=== PATIENT | female | born 1985 | race Caucasian/White ===

== ENCOUNTER 2016-07-08 12:15 | Emergency (ER) | payer SELFPAY ==
--- NOTE | 2016-07-08 12:55 | ER Document Report ---
ED Medical Screen (RME) - General Stated Complaint: SORE THROAT Notes: 30 yo female c/o sore throat. children with + strep. c/o sore throat, cough. no fever Physical Exam - Vital signs Vitals: Temp Pulse Resp BP Pulse Ox 97.8 F 79 16 107/73 94 07/08/16 12:52 07/08/16 12:52 07/08/16 12:52 07/08/16 12:52 07/08/16 12:52 Course - Vital Signs Vital signs: Temp Pulse Resp BP Pulse Ox 97.8 F 79 16 107/73 94 07/08/16 12:52 07/08/16 12:52 07/08/16 12:52 07/08/16 12:52 07/08/16 12:52
--- NOTE | 2016-07-08 15:20 | ER Document Report ---
HPI - HPI Patient complains to provider of: cough, strep exposure Onset: Last week Quality of pain: No pain Pain Level: Denies Context: Patient presents to the emergency department with complaints of fever last week cough and recent exposure to strep. She reports both her kids recently treated for strep. She reports she has missed work and needs a work note. She denies recent fever vomiting diarrhea. She reports her throat really doesn't hurt but her kids had the same symptoms and when she took him to the urgent care they tested positive for strep. Associated Symptoms: Nonproductive cough, Fever Exacerbated by: Denies Relieved by: Denies Similar symptoms previously: No Recently seen / treated by doctor: No - REPRODUCTIVE LMP: [id number] - DERM Skin Color: Normal Past Medical History - General Information source: Patient - Social History Smoking Status: Current Every Day Smoker Cigarette use (# per day): Yes Chew tobacco use (# tins/day): No Frequency of alcohol use: None Drug Abuse: None Occupation: [employer] Lives with: Family Family History: Reviewed & Not Pertinent Patient has suicidal ideation: No Patient has homicidal ideation: No - Medical History Medical History: Negative Renal/ Medical History: Denies: Hx Peritoneal Dialysis Surgical Hx: Negative Vertical Provider Document - CONSTITUTIONAL Agree With Documented VS: Yes Exam Limitations: No Limitations General Appearance: WD/WN, No Apparent Distress - INFECTION CONTROL TRAVEL OUTSIDE OF THE [place] IN LAST 30 DAYS: No - HEENT HEENT: Atraumatic, Normal ENT Exam, Normocephalic. negative: Pharyngeal Exudate , Pharyngeal Erythema, Tympanic Membrane Red, Tympanic Membrane Bulging - NECK Neck: Normal Inspection, Supple. negative: Lymphadenopathy-Left, Lymphadenopathy-Right - RESPIRATORY Respiratory: Breath Sounds Normal, No Respiratory Distress O2 Sat by Pulse Oximetry: 94 - CARDIOVASCULAR Cardiovascular: Regular Rate, Regular Rhythm - GI/ABDOMEN Gastrointestinal: Abdomen Soft, Abdomen Non-Tender - BACK Back: Normal Inspection - MUSCULOSKELETAL/EXTREMETIES Musculoskeletal/Extremeties: SHERRIE CHIU - NEURO Level of Consciousness: Awake, Alert, Appropriate Motor/Sensory: No Motor Deficit - DERM Integumentary: Warm, Dry Course - Re-evaluation Re-evalutation: 07/08/16 Discussed symptoms with patient. Patient will be prescribed a prescription for Pen-Vee K. She was instructed if she started feeling worse to get the prescription filled otherwise follow-up with her primary care provider for reevaluation. She reports she's taken penicillin without problems before. - Vital Signs Vital signs: Temp Pulse Resp BP Pulse Ox 97.8 F 79 16 107/73 94 07/08/16 12:52 07/08/16 12:52 07/08/16 12:52 07/08/16 12:52 07/08/16 12:52 Discharge - Discharge Clinical Impression: Sore throat, Strep throat exposure Condition: Stable Disposition: HOME, SELF-CARE Instructions: Penicillin V K ([facility]), Strep Throat ([facility]), Sore Throat ([facility]) Additional Instructions: *You have been evaluated for a sore throat, strep exposure *Take medication as prescribed *Warm salt water gargles and throat lozenges for comfort *Change toothbrush after two days of antibiotics *Do not let anyone drink/eat after you *Good hand washing *Follow-up with a primary care provider within one week for recheck *Return to ED for worsening condition change, needs, trouble breathing, trouble swallowing Prescriptions: Penicillin V Potassium [Penicillin Vk 500 mg Tablet] 500 mg PO BID #20 tablet Forms: Return to Work
[2016-07-08 15:52] VITALS: BP 109/58
== END 2016-07-08 15:52 | disposition home or self-care (01) ==
LOC: ER 12:15
DX: J02.9 Acute pharyngitis, unspecified (principal); Z20.818 Contact with and (suspected) exposure to other bacterial communicable diseases; R05 Cough; F17.210 Nicotine dependence, cigarettes, uncomplicated
CPT/HCPCS: 99282

== ENCOUNTER 2017-10-11 15:29 | Emergency (ER) | payer MEDICAID ==
[2017-10-11 15:44] VITALS: BP 126/72
[2017-10-11] MEDS ORDERED: IBUPROFEN 600 MG TABLET PO ONE (17:13)
[2017-10-11] MEDS ORDERED: PENICILLIN V POTASSIUM 500 MG TABLET PO ONE (17:13)
[2017-10-11] MEDS ORDERED: LIDOCAINE 2% VISCOUS SOLN 20 ML UDCUP PO ONE (17:13)
--- NOTE | 2017-10-11 17:18 | ER Document Report ---
ED Oral Problem - General Chief Complaint: Toothache Stated Complaint: JAW PAIN Time Seen by Provider: 10/11/17 16:41 Mode of Arrival: Ambulatory Information source: Patient Notes: 32-year-old female presented ED for complaint of swelling to the left jaw last night that is no longer swelling with dental pain. She states the pain is a 5 out of 5 sharp and throbbing. She states she has had dental pain for a long time but is not been able to follow-up with the dentist. TRAVEL OUTSIDE OF THE U.S. IN LAST 30 DAYS: No - HPI Patient complains to provider of: Jaw pain, Swelling of jaw, Toothache Onset: Other - Dental pain for a long time. States there is jaw was swollen last night but it is not swollen at this time Onset: Gradual Quality of pain: Sharp, Throbbing Severity: Severe Pain Level: 5 Associated symptoms: Toothache Worsened by: Cold Relieved by: Nothing Similar symptoms previously: Yes Recently seen / treated by doctor/dentist: No - Related Data Allergies/Adverse Reactions: No Known Allergies Allergy (Unverified 07/08/16 12:54) Past Medical History - General Information source: Patient - Social History Smoking Status: Current Every Day Smoker Cigarette use (# per day): Yes - Half pack per day Chew tobacco use (# tins/day): No Smoking Education Provided: Yes - 4 minutes Frequency of alcohol use: None Drug Abuse: None Occupation: None Lives with: Other - Her 3 children Family History: Reviewed & Not Pertinent Patient has suicidal ideation: No Patient has homicidal ideation: No - Past Medical History Cardiac Medical History: Reports: None Pulmonary Medical History: Reports: None EENT Medical History: Reports: None Neurological Medical History: Reports: None Endocrine Medical History: Reports: None Renal/ Medical History: Reports: None Malignancy Medical History: Reports: None GI Medical History: Reports: None Musculoskeltal Medical History: Reports None Skin Medical History: Reports None Psychiatric Medical History: Reports: None Traumatic Medical History: Reports: None Infectious Medical History: Reports: None Past Surgical History: Reports: Hx Breast Surgery - Breast mass removed, Hx Oral Surgery - Dental surgery - Immunizations Hx Diphtheria, Pertussis, Tetanus Vaccination: Yes Review of Systems - Review of Systems Constitutional: No symptoms reported EENT: Dental problem. denies: Difficulty swallowing Cardiovascular: No symptoms reported Respiratory: No symptoms reported Gastrointestinal: No symptoms reported Genitourinary: No symptoms reported Female Genitourinary: No symptoms reported Musculoskeletal: No symptoms reported Skin: No symptoms reported Hematologic/Lymphatic: No symptoms reported Neurological/Psychological: No symptoms reported -: Yes All other systems reviewed and negative Physical Exam - Vital signs Vitals: Temp Pulse Resp BP Pulse Ox 97.9 F 82 18 126/72 H 97 10/11/17 15:42 10/11/17 15:42 10/11/17 15:42 10/11/17 15:42 10/11/17 15:42 Interpretation: Normal - General General appearance: Appears well, Alert - HEENT Head: Normocephalic, Atraumatic Eyes: Normal Pupils: PERRL Ears: Normal External canal: Normal Tympanic membrane: Normal Sinus: Normal Nasal: Normal Mouth/Lips: Caries - Tooth #17 with redness surrounding the tooth Mucous membranes: Normal Pharynx: Normal Neck: Anterior cervical chain - Respiratory Respiratory status: No respiratory distress Chest status: Nontender Breath sounds: Normal Chest palpation: Normal - Cardiovascular Rhythm: Regular Heart sounds: Normal auscultation Murmur: No - Abdominal Inspection: Normal Distension: No distension Bowel sounds: Normal Tenderness: Nontender Organomegaly: No organomegaly - Back Back: Normal, Nontender - Extremities General upper extremity: Normal inspection, Nontender, Normal color, Normal ROM , Normal temperature General lower extremity: Normal inspection, Nontender, Normal color, Normal ROM , Normal temperature, Normal weight bearing. No: Horacio's sign - Neurological Neuro grossly intact: Yes Cognition: Normal Orientation: AAOx4 Jamie Coma Scale Eye Opening: Spontaneous [place] Coma Scale Verbal: Oriented [place] Coma Scale Motor: Obeys Commands Jamie Coma Scale Total: 15 Speech: Normal Motor strength normal: LUE, RUE, LLE, RLE Sensory: Normal - Psychological Associated symptoms: Normal affect, Normal mood - Skin Skin Temperature: Warm Skin Moisture: Dry Skin Color: Normal Course - Re-evaluation Re-evalutation: 10/11/17 22:27 After performing a Medical Screening Examination, I estimate there is LOW risk for a DEEP SPACE INFECTION (e.g., MICHAELA'S ANGINA OR RETROPHARYNGEAL ABSCESS), MENINGITIS, INTRACRANIAL HEMORRHAGE, or AIRWAY COMPROMISE, thus I consider the discharge disposition reasonable. Also, there is no evidence or peritonitis, sepsis, or toxicity. I have reevaluated this patient multiple times and no significant life threatening changes are noted. The patient and I have discussed the diagnosis and risks, and we agree with discharging home with close follow-up with the understanding that symptoms and presentations can change. We also discussed returning to the Emergency Department immediately if new or worsening symptoms occur. We have discussed the symptoms which are most concerning (e.g., changing or worsening pain, trouble swallowing or breathing, neck stiffness or fever) that necessitate immediate return. - Vital Signs Vital signs: Temp Pulse Resp BP Pulse Ox 97.9 F 82 18 126/72 H 97 10/11/17 15:42 10/11/17 15:42 10/11/17 15:42 10/11/17 15:42 10/11/17 15:42 Discharge - Discharge Clinical Impression: Pain due to dental caries Condition: Stable Disposition: HOME, SELF-CARE Instructions: Family Physicians / Practices, Use of [id number] Ibuprofen ([facility]) Additional Instructions: TOOTHACHE: Your pain is due to dental decay. The tooth must be repaired in order for you to feel better. You will, therefore, be referred to a dentist. We do not have dentists on the staff at [facility]. Severe swelling or drainage around a tooth usually means a dental abscess. This also requires evaluation and treatment by the dentist, but antibiotics may be prescribed while awaiting dental treatment. You should be rechecked immediately if you develop major swelling of the face, increasing pain, a lump in the jaw or gums, headache, difficulty swallowing, or fever. PENICILLIN V K: You have been given a prescription for Penicillin VK. Your physician has determined that this is the best antibiotic for your condition. Pen VK can be taken with meals, however more of the antibiotic gets into the bloodstream if it's taken on an empty stomach. Penicillin usually has no side effects. However, allergy to penicillins is common. If you have had an allergic reaction to any drug of the penicillin family, you should never take any other penicillin. Notify your doctor at once if you develop hives, itching, swelling, faintness, or shortness of breath. Salt and soda solution 1 quart of water 1 tablespoon of salt 1 teaspoon of baking soda Mixed 3 ingredients together and boil for 1 minute Placed in a covered quart jar Use 1/2 ounce of cold solution to gargle 3 times a day Usually viscous lidocaine every 2-3 hours for your dental pain. Take a small amount rub it on your finger rub it over the tooth that is hurting and the gums surrounding the tooth. Take antibiotic until completed. Call the dentist in the morning. FOLLOW-UP CARE: You have been referred for follow-up care to the dentists listed below. Call the dentists office for an appointment as you were instructed or within the next two days. If you experience worsening or a significant change in your symptoms, notify the physician immediately or return to the Emergency Department at any time for re-evaluation. [facility] [address] [place], [place] [facility] [address] [place] [address] [facility] [address] [facility] [address] [facility] [place] [facility] [address] [email or web address] [address] [place] [address] Wednesday- 8:00am to 5:00 pm Will see patients from other the [facility]. Charges based on income and family size and accepts Medicare, Medicaid, and Insurances Will pull molars [facility] [id number] Hours of Operation 8:00 am - 4:30 pm weekdays The following dental offices accept Medicaid: [facility] Dr. Don Dr. Hernandez Dr. Ramirez Dr. Segura Joseph Ontiveros [place], and [place] [facility] Dr. Horton ([place]) Dr. Coto ([place] D[place]) [facility] Drs. Ott and Amish ([place]) Dr. Lugo ([place]) [facility] Dr. Hollins ([place]) Drs. Pina and ([place]) Medicaid Care Line Forms: Elevated Blood Pressure, Smoking Cessation Education
== END 2017-10-11 17:37 | disposition home or self-care (01) ==
LOC: ER 15:29
DX: K02.9 Dental caries, unspecified (principal); M26.69 Other specified disorders of temporomandibular joint; F17.210 Nicotine dependence, cigarettes, uncomplicated
CPT/HCPCS: 99406; 99282; J3490 ×3

== ENCOUNTER 2018-04-02 10:10 | Emergency (ER) | payer MEDICAID ==
--- NOTE | 2018-04-02 11:10 | ER Document Report ---
HPI - HPI Pain Level: 5 Notes: Patient is an otherwise healthy 32-year-old female who presents to the emergency department with chief complaint of dental pain, facial swelling and ear pain. Patient reports that she has been having pain to her left upper teeth near tooth #14 and 15. She states that she has some broken teeth as well as some cavities. She states she believes there is an infection. Patient reports she has been taking ibuprofen however she continues to have pain. Past Medical History - General Information source: Patient - Social History Smoking Status: Current Some Day Smoker Frequency of alcohol use: None Drug Abuse: None Family History: Reviewed & Not Pertinent - Medical History Medical History: Negative Renal/ Medical History: Denies: Hx Peritoneal Dialysis Past Surgical History: Reports: Hx Breast Surgery - Breast mass removed, Hx Oral Surgery - Dental surgery - Immunizations Hx Diphtheria, Pertussis, Tetanus Vaccination: Yes Vertical Provider Document - CONSTITUTIONAL Notes: PHYSICAL EXAMINATION: GENERAL: Well-appearing, well-nourished and in no acute distress. HEAD: Atraumatic, normocephalic. EYES: Pupils equal round extraocular movements intact, conjunctiva are normal. ENT: Nares patent, multiple dental caries and broken teeth noted throughout the mouth, there is no drainable abscess identified. There is some erythema noted to the right upper jawline. NECK: Normal range of motion LUNGS: No respiratory distress Musculoskeletal: Normal range of motion NEUROLOGICAL: Normal speech, normal gait. PSYCH: Normal mood, normal affect. SKIN: Warm, Dry, normal turgor, no rashes or lesions noted. - INFECTION CONTROL TRAVEL OUTSIDE OF THE [place] IN LAST 30 DAYS: No Course - Re-evaluation Re-evalutation: Patient will be treated for a possible dental infection. There is no drainable abscess identified. Patient will be placed on penicillin and instructed to take ibuprofen. Patient will follow up with her dentist next week. Discharge - Discharge Clinical Impression: Dental infection Condition: Stable Disposition: HOME, SELF-CARE Additional Instructions: TOOTHACHE: Your pain is due to dental decay. The tooth must be repaired in order for you to feel better. You will, therefore, be referred to a dentist. We do not have dentists on the staff at [facility]. Severe swelling or drainage around a tooth usually means a dental abscess. This also requires evaluation and treatment by the dentist, but antibiotics may be prescribed while awaiting dental treatment. You should be rechecked immediately if you develop major swelling of the face, increasing pain, a lump in the jaw or gums, headache, difficulty swallowing, or fever. PENICILLIN V K: You have been given a prescription for Penicillin VK. Your physician has determined that this is the best antibiotic for your condition. Pen VK can be taken with meals, however more of the antibiotic gets into the bloodstream if it's taken on an empty stomach. Penicillin usually has no side effects. However, allergy to penicillins is common. If you have had an allergic reaction to any drug of the penicillin family, you should never take any other penicillin. Notify your doctor at once if you develop hives, itching, swelling, faintness, or shortness of breath. FOLLOW-UP CARE: You have been referred for follow-up care to the dentists listed below. Call the dentists office for an appointment as you were instructed or within the next two days. If you experience worsening or a significant change in your symptoms, notify the physician immediately or return to the Emergency Department at any time for re-evaluation. [facility] [address] Prescriptions: Penicillin V Potassium [Penicillin Vk 500 mg Tablet] 500 mg PO BID #20 tablet Forms: Return to Work
[2018-04-02] MEDS ORDERED: PENICILLIN V POTASSIUM 500 MG TABLET PO ONE (11:32)
== END 2018-04-02 11:28 | disposition home or self-care (01) ==
LOC: ER 10:10
DX: K04.7 Periapical abscess without sinus (principal); K02.9 Dental caries, unspecified; F17.200 Nicotine dependence, unspecified, uncomplicated
CPT/HCPCS: 99282; J3490

== ENCOUNTER 2018-04-17 12:49 | Emergency (ER) | payer MEDICAID ==
[2018-04-17 13:00] VITALS: BP 102/62
--- NOTE | 2018-04-17 14:02 | ER Document Report ---
ED Oral Problem - General Chief Complaint: Toothache Stated Complaint: LEFT SIDE JAW PAIN, SWELLING Time Seen by Provider: 04/17/18 13:55 Mode of Arrival: Ambulatory Information source: Patient Notes: Patient is a 32-year-old female who comes emergency room complaint of left lower jaw pain and swelling. Patient states that she was seen here approximately a week ago diagnosed with an abscess and put on penicillin states that it seems to have been doing okay until last night she noticed some swelling in the left side of the lower jaw went to bed when she woke up it was much larger. Since coming here to the emergency room it is gotten slightly smaller and feels like it is oozing in her mouth. 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 She denies any other medical problems TRAVEL OUTSIDE OF THE U.S[place] IN LAST 30 DAYS: No - HPI Patient complains to provider of: Swelling of face, Toothache - Some months where it is all [employer] really good drinking very heavy if he can have his next visit Onset: This morning Onset: Sudden Quality of pain: Pressure, Throbbing Pain Level: 3 Context: Fractured tooth, Recent antibiotic use Swollen jaw/face: Mild Associated symptoms: Decreased appetite, Drainage, Facial pain, Jaw pain Worsened by: Heat Relieved by: Nothing Similar symptoms previously: Yes Recently seen / treated by doctor/dentist: Yes - Related Data Allergies/Adverse Reactions: No Known Allergies Allergy (Verified 04/17/18 12:50) Past Medical History - General Information source: Patient - Social History Smoking Status: Current Every Day Smoker Cigarette use (# per day): Yes Chew tobacco use (# tins/day): No Smoking Education Provided: Yes Frequency of alcohol use: None Drug Abuse: None Family History: Reviewed & Not Pertinent Patient has suicidal ideation: No Patient has homicidal ideation: No Renal/ Medical History: Denies: Hx Peritoneal Dialysis Past Surgical History: Reports: Hx Breast Surgery - Breast mass removed, Hx Oral Surgery - Dental surgery - Immunizations Hx Diphtheria, Pertussis, Tetanus Vaccination: Yes Review of Systems - Review of Systems Constitutional: No symptoms reported EENT: Dental problem Cardiovascular: No symptoms reported Respiratory: No symptoms reported Gastrointestinal: No symptoms reported Genitourinary: No symptoms reported Female Genitourinary: No symptoms reported Musculoskeletal: No symptoms reported Skin: No symptoms reported Hematologic/Lymphatic: No symptoms reported Neurological/Psychological: No symptoms reported -: Yes All other systems reviewed and negative Physical Exam - Vital signs Vitals: Temp Pulse Resp BP Pulse Ox 98.5 F 90 16 102/62 97 04/17/18 12:58 04/17/18 12:58 04/17/18 12:58 04/17/18 12:58 04/17/18 12:58 Interpretation: Hypotensive - Notes Notes: PHYSICAL EXAMINATION: GENERAL: patient is a well-nourished well-developed 32-year-old female who is in no apparent distress but is in moderate amount of discomfort at least appearing so. HEAD, normocephalic. Examination of the facial features externally show patient has some minor swelling around the lower left side of the jaw facial area. It is nonfluctuant at this time feels more puffy than it does fluctuant and there is no amount of erythema on the external view of the jaw. EYES: Pupils equal round and reactive to light, extraocular movements intact, conjunctiva are normal. ENT: Examination of the oral cavity shows the patient has a back lower molar on the left that has decayed out in the middle and is nothing but a hole in on first glance looks like there is bloody pus that is coming out of that area. There is also a moderate amount of tenderness and erythema around the gum tooth line. The tooth is just barely above the gum to the line area. But when I use a 4 x 4 and I wiped the area it is bloody pus that comes outside of the tooth and when I apply pressure patient has increased pain and when I apply pressure to the center of the hole it does force pus out around the gumline. NECK: Normal range of motion, supple without lymphadenopathy LUNGS: Breath sounds clear to auscultation bilaterally and equal. No wheezes rales or rhonchi. HEART: Regular rate and rhythm without murmurs ABDOMEN: Soft, nontender, nondistended abdomen. No guarding, no rebound. No masses appreciated. Female : deferred Musculoskeletal: Normal range of motion, no pitting or edema. No cyanosis. NEUROLOGICAL: Normal speech, normal gait. Normal sensory, motor exams PSYCH: Normal mood, normal affect. SKIN: Warm, Dry, normal turgor, no rashes or lesions noted. Course - Re-evaluation Re-evalutation: 04/17/18 13:58 Informed patient that at this time that abscess is draining through her tooth. So it this moment I would not attempt to cut open anything on the side of the jaw. So at this point I am thinking her changing the antibiotics first and if he gets worse she is to return to ER for a CT of the area. Patient does not look toxic and the pain as I can tell is present but does not look overwhelming. When I reached in the mouth with 4 x 4 I felt a hole and when I withdrew the 4 x 4 it had green bloody pus coming from that whole area of the tooth so it is draining at this time. - Vital Signs Vital signs: Temp Pulse Resp BP Pulse Ox 98.5 F 90 16 102/62 97 04/17/18 12:58 04/17/18 12:58 04/17/18 12:58 04/17/18 12:58 04/17/18 12:58 Discharge - Discharge Clinical Impression: Dental abscess Condition: Stable Disposition: HOME, SELF-CARE Instructions: Abscess ([facility]), Toothache ([facility]) Additional Instructions: Home and rest medication as prescribed. As we discussed if he gets any bigger or pain increases you to return to ER for a CT of the face. Finish taking her penicillin and take the clindamycin as directed. Also you as we discussed you can take 800 mg of ibuprofen 3 times a day with food and you can take Tylenol to maximum number 3 g a day this means that the hydrocodone has 325 mg and it already so we will have to adjust the dosage of extra Tylenol to fit that profile. Again return to ER if you have any concerns or problems. As we discussed you are going to need a ears nose and throat or maxillofacial surgeon for this. We do have ears nose and throat electrical and electronic assembler today as can be Dr. Jesse Best and I will give you this information below. You may contact him to see if he can accommodate you and you may also attempt to go to community clinic if you need a primary care provider for referral. Prescriptions: Clindamycin HCl [Cleocin 300 mg Capsule] 300 mg PO TID #40 capsule Hydrocodone/Acetaminophen [[place] 7.5-325 mg Tablet] 1 tab PO Q4 PRN #15 tablet PRN Reason: Forms: Smoking Cessation Education, Return to Work Referrals: JESSE BEST, [ASSOCIATE] - Follow up as needed [facility] [NO LOCAL MD] - Follow up as needed
== END 2018-04-17 14:22 | disposition home or self-care (01) ==
LOC: ER 12:49
DX: K04.7 Periapical abscess without sinus (principal); K02.9 Dental caries, unspecified; K08.89 Other specified disorders of teeth and supporting structures; R63.0 Anorexia; F17.210 Nicotine dependence, cigarettes, uncomplicated
CPT/HCPCS: 99282

== ENCOUNTER 2018-07-06 09:44 | Emergency (ER) | payer MEDICAID ==
--- NOTE | 2018-07-06 10:23 | ER Document Report ---
ED General - General Chief Complaint: Abdominal Pain Stated Complaint: ABDOMINAL PAIN Time Seen by Provider: 07/06/18 10:16 Primary Care Provider: [facility] [Provider Group] - Follow up in 3-5 days Notes: Patient is a 32-year-old female, that presents to the emergency department for chief complaint of abdominal cramping. Patient states that she had a positive test a little over a month ago, and then have a 2000 miscarriage with clots and heavy bleeding while she was at work, about a week ago she retook another test, and was positive, she is concerned about this, because she was almost certain she had a miscarriage so she decided come to the emergency department. She states she is had some mild pelvic cramping, but denies having any further bleeding discharge, or fevers or chills. She reports the first day of last menstrual period was on April 10, 2018. Denies any other complaints at this time. Past Medical History: Denies chronic medical conditions Past Surgical History: Breast lumpectomy Social History: Admits to smoking cigarettes daily, denies alcohol or drug use. Family History: Reviewed and noncontributory for presenting illness Allergies: Reviewed, see documented allergy list. REVIEW OF SYSTEMS: Other than noted above, the 12 point review of systems was reviewed with the patient and were negative, all pertinent findings are included in the HPI. PHYSICAL EXAMINATION: Vital signs reviewed, nursing noted reviewed. GENERAL: Well-appearing, well-nourished and in no acute distress. HEAD: Atraumatic, normocephalic. EYES: Eyes appear normal, extraocular movements intact, sclera anicteric, conjunctiva are normal. ENT: nares patent, oropharynx clear without exudates. Moist mucous membranes. NECK: Normal range of motion, supple without lymphadenopathy LUNGS: Breath sounds clear to auscultation bilaterally and equal. No wheezes rales or rhonchi. HEART: Regular rate and rhythm without murmurs ABDOMEN: Soft, nontender, normoactive bowel sounds. No rebound, guarding, or rigidity. No masses appreciated. EXTREMITIES: Nontender, good range of motion, no pitting or edema. NEUROLOGICAL: No focal neurological deficits. Moves all extremities spontaneously Motor and sensory grossly intact on exam. PSYCH: Normal mood, normal affect. SKIN: Warm, Dry, normal turgor, no rashes or lesions noted on exposed skin TRAVEL OUTSIDE OF THE [place] IN LAST 30 DAYS: No - Related Data Allergies/Adverse Reactions: No Known Allergies Allergy (Verified 07/06/18 09:48) Past Medical History - Social History Smoking Status: Current Every Day Smoker Chew tobacco use (# tins/day): No Frequency of alcohol use: None Drug Abuse: None Family History: Reviewed & Not Pertinent Patient has suicidal ideation: No Patient has homicidal ideation: No Renal/ Medical History: Denies: Hx Peritoneal Dialysis Psychiatric Medical History: Reports: Hx Depression Past Surgical History: Reports: Hx Breast Surgery - Breast mass removed, Hx Oral Surgery - Dental surgery - Immunizations Hx Diphtheria, Pertussis, Tetanus Vaccination: Yes Physical Exam - Vital signs Vitals: Temp Pulse Resp BP Pulse Ox 98.0 F 78 16 111/62 100 07/06/18 10:00 07/06/18 10:00 07/06/18 10:00 07/06/18 10:00 07/06/18 10:00 Course - Re-evaluation Re-evalutation: Patient seen and examined vital signs reviewed. Laboratory data and imaging were ordered as appropriate for the patient's presenting symptoms and complaint, with consideration of any critical or life threatening conditions that may be associated with their obtained history and exam as noted above. Results were reviewed when available and demonstrated single live intrauterine , approximately 13 weeks gestation, no significant abnormalities, patient was found to be AB+, no RhoGam indicated, hCG was consistent with current state of The patient was re-evaluated and was stable Evaluation was most consistent with , discussed the patient her current state of and and that she needs to start taking vitamins, discontinue smoking, and avoid anti-inflammatories, patient was agreeable to plan of care. Results were discussed with the patient at this point, after careful consideration I feel that that patient can be discharged from the emergency department, the patient was educated treatments and reasons to return to the emergency department based on their presumed diagnosis as noted above, they were advised to followup with a primary care physician in 2-3 days. Patient was agreeable to plan of care. *Note is created using voice recognition software and may contain spelling, syntax or grammatical errors. Laboratory 07/06/18 07/06/18 07/06/18 11:26 11:26 11:26 Beta HCG, Quant 64122.00 H Total Beta HCG POSITIVE Urine Color STRAW Urine Appearance CLEAR Urine pH 8.0 Ur Specific Lohn 1.006 Urine Protein NEGATIVE Urine Glucose (UA) NEGATIVE Urine Ketones NEGATIVE Urine Blood NEGATIVE Urine Nitrite NEGATIVE Urine Bilirubin NEGATIVE Urine Urobilinogen NEGATIVE Ur Leukocyte Esterase NEGATIVE Urine WBC (Auto) 0 Urine RBC (Auto) 0 Urine Bacteria (Auto) TRACE Squamous Epi Cells Auto 3 Urine Mucus (Auto) RARE Urine Ascorbic Acid NEGATIVE Blood Type Cancelled Rhogam Indicated Cancelled 07/06/18 12:33 Beta HCG, Quant Total Beta HCG Urine Color Urine Appearance Urine pH Ur Specific Lohn Urine Protein Urine Glucose (UA) Urine Ketones Urine Blood Urine Nitrite Urine Bilirubin Urine Urobilinogen Ur Leukocyte Esterase Urine WBC (Auto) Urine RBC (Auto) Urine Bacteria (Auto) Squamous Epi Cells Auto Urine Mucus (Auto) Urine Ascorbic Acid Blood Type AB POSITIVE Rhogam Indicated RHOGAM NOT INDICATED Obstetrics Ultrasound 07/06/18 10:24 IMPRESSION: LIVING INTRAUTERINE . ESTIMATED GESTATIONAL AGE 17 week 5 day. NO VISUALIZED ANOMALIES. Trimester of : Second trimester - 13 weeks 1 day to 27 weeks 6 days. - Vital Signs Vital signs: Temp Pulse Resp BP Pulse Ox 98.0 F 86 16 100/55 L 100 07/06/18 10:00 07/06/18 13:54 07/06/18 10:00 07/06/18 13:54 07/06/18 13:54 - Laboratory Laboratory results interpreted by me: 07/06/18 11:26 Beta HCG, Quant 03421.00 H Discharge - Discharge Clinical Impression: Qualifiers: Weeks of gestation: 13 weeks Qualified Code(s): Z3A.13 - 13 weeks gestation of Condition: Stable Disposition: HOME, SELF-CARE Instructions: ([facility] Additional Instructions: I would encourage you to discontinue smoking at this time, avoid NSAIDs such as ibuprofen, Motrin, Aleve, Advil, naproxen, I recommend that you start taking a vitamin on a daily basis, and follow-up with [facility], there are numbers provided for the [facility]. Referrals: [facility] [Provider Group] - Follow up in 3-5 days
[2018-07-06 11:45] LABS: APPEARANCE,URINE CLEAR; BILIRUBIN,URINE NEGATIVE (NEGATIVE); COLOR,URINE STRAW; GLUCOSE, URINE NEGATIVE (NEGATIVE); KETONES,URINE NEGATIVE (NEGATIVE); LEUKOCYTE ESTERASE,URINE NEGATIVE (NEGATIVE); NITRITE,URINE NEGATIVE (NEGATIVE); PROTEIN,URINE NEGATIVE (NEGATIVE); URINE SPECIFIC GRAVITY 1.006; UROBILINOGEN,URINE NEGATIVE mg/dL (<2.0)
--- NOTE | 2018-07-06 13:38 | RADIOLOGY REPORT (SQ) ---
EXAM DESCRIPTION: U/S OB 14+ TRNABD 1GES W/O DOP COMPLETED DATE/TIME: 07/06/2018 1:12 pm REASON FOR STUDY: possible vs retained products s/p miscar COMPARISON: None. TECHNIQUE: Static and Dynamic grayscale imaging performed of gravid uterus using transabdominal appr oach. Additional selected color Doppler and spectral images recorded. All stored on PACS. LIMITATIONS: None. FINDINGS: FETUSES SEEN:1 EGA: 17 week 5 day Calculated using BPD,FL,HC,AC documented on images. Greater than clinical dates, reportedly 12 week 3 day estimated gestational age based on last menstrual period. MARLENI: 12/09/2018. EFW: 212 grams PERCENTILE: Not calculated. JUS: Largest vertical pocket just over 5 cm. PLACENTA: Posterior without abruption or previa. PRESENTATION: Variable. ANATOMY: HEART RATE: 150 beats per minute. FOUR CHAMBER HEART: Visualized. THREE VESSEL CORD: Yes. CORD INSERTION: Visualized. KIDNEYS AND BLADDER: Visualized. Appear normal. STOMACH: Visualized. Appears normal. SPINE: Normal as visualized. BRAIN AND LATERAL VENTRICLES: Visualized. Appear normal. OTHER: No other significant finding. MATERNAL ADNEXA: Maternal ovaries not visualized. CERVICAL LENGTH: 3 cm. Closed. OTHER: No other significant finding. IMPRESSION: LIVING INTRAUTERINE . ESTIMATED GESTATIONAL AGE 17 week 5 day. NO VISUALIZED ANOMALIES. Trimester of : Second trimester - 13 weeks 1 day to 27 weeks 6 days. TECHNICAL DOCUMENTATION: JOB ID: [id number] [employer]- All Rights Reserved Reading location - IP/workstation name: [email or web address]
[2018-07-06 14:00] VITALS: BP 100/55
== END 2018-07-06 13:59 | disposition home or self-care (01) ==
LOC: ER 09:44
DX: O26.891 Other specified pregnancy related conditions, first trimester (principal); R10.9 Unspecified abdominal pain; R10.2 Pelvic and perineal pain; O99.331 Smoking (tobacco) complicating pregnancy, first trimester; Z3A.13 13 weeks gestation of pregnancy
CPT/HCPCS: 36415; 76805; 81001; 84702; 86900; 86901; 87086; 87088; 99284

== ENCOUNTER 2018-08-27 03:04 | Emergency (ER) | payer MEDICAID ==
--- NOTE | 2018-08-27 04:55 | ER Document Report ---
ED General - General Chief Complaint: Possible Overdose Stated Complaint: POSSIBLE OVERDOSE Time Seen by Provider: 08/27/18 03:29 Notes: Patient is a pleasant 33-year-old female presents with complaint of opiate overdose. Patient says that she has been clean since November. 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 She said her muscles are sore and her friend gave her a pill of oxycodone. So this is only pill that she had. She is unsure exactly what the dose was. She took it and then went to sleep and she was found unresponsive and therefore paramedics were called and she was given Narcan. Patient does have kids at home but her sister is currently with the kids. She is tearful and crying and says that she never wants to use opiates again and says that she messed up and have been doing so well as she had been clean for over 7 months. She denies doing any other drugs. No other complaints at this time. She says that she does have a history of depression and is on medications for depression. She denies being suicidal. TRAVEL OUTSIDE OF THE [place] IN LAST 30 DAYS: No - Related Data Allergies/Adverse Reactions: No Known Allergies Allergy (Verified 08/27/18 03:21) Past Medical History - Social History Smoking Status: Current Every Day Smoker Frequency of alcohol use: DENIES Drug Abuse: Other Family History: Reviewed & Not Pertinent Patient has suicidal ideation: No Patient has homicidal ideation: No Renal/ Medical History: Denies: Hx Peritoneal Dialysis Psychiatric Medical History: Reports: Hx Depression Past Surgical History: Reports: Hx Breast Surgery - Breast mass removed, Hx Oral Surgery - Dental surgery - Immunizations Hx Diphtheria, Pertussis, Tetanus Vaccination: Yes Review of Systems - Review of Systems Notes: My Normal Review Basic REVIEW OF SYSTEMS: CONSTITUTIONAL : Denies fever, chills, or sweats. Denies recent illness. EENT: Denies eye, ear, throat, or mouth pain or symptoms. Denies nasal or sinus congestion. CARDIOVASCULAR: Denies chest pain. RESPIRATORY: Became apneic. GASTROINTESTINAL: Denies abdominal pain. Denies nausea, vomiting, or diarrhea. MUSCULOSKELETAL: Denies neck or back pain or joint pain or swelling. SKIN: Denies rash or skin lesions. NEUROLOGICAL: Came unresponsive Psychiatry: Depression ALL OTHER SYSTEMS REVIEWED AND NEGATIVE. Physical Exam - Vital signs Vitals: Temp Pulse Resp BP Pulse Ox 98.2 F 100 16 101/63 100 08/27/18 03:21 08/27/18 03:21 08/27/18 03:21 08/27/18 03:21 08/27/18 03:21 - Notes Notes: General Appearance: Well nourished, alert, cooperative, no acute distress, no obvious discomfort. Well-appearing. Vitals: reviewed, See vital signs table. Head: no swelling or tenderness to the head Eyes: PERRL, EOMI, Conjuctiva clear Mouth: No decreasd moisture Throat: No tonsillar inflammation, No airway obstruction, No lymphadenopathy Lungs: No wheezing, No rales, No rhonci, No accessory muscle use, good air exchange bilaterally. Heart: Normal rate, Regular rythm, No murmur, no rub Abdomen: Normal BS, soft, No rigidity, No abdominal tenderness, No guarding, no rebound, no abdominal masses, no organomegaly Extremities: strength 5/5 in all extremities, good pulses in all extremities, no swelling or tenderness in the extremities, no edema. Skin: warm, dry, appropriate color, no rash Neuro: speech clear, oriented x 3, normal affect, responds appropriately to questions. Course - Re-evaluation Re-evalutation: 08/27/18 04:55 On reevaluation patient continues look very well. She is had no hypoxemia. She is awake and alert and fully oriented. Is been more than 2 hours since her Narcan and she continues to do well. She says that she has some chronic depression but currently does not feel excessively depressed. She denies being suicidal. She says her sister is at home with her kids and her sisters can stay with her tonight. She says she never plans on using opiates again. I informed her to stay away from opiates at all costs and talked her about the potential of overdose at much lower doses of opiates and she has had in the past due to her being away from them for so long. Informed her that we are happy to help her anytime and to return to ER anytime if she has worsening depression, any thoughts of suicide, excessive sleepiness, difficulty breathing, or she feels unwell in any way. Patient agrees with plan will be discharged home. I did offer the patient to speak with mental health this morning but depression but she says that she feels her depression is not that severe and that she has no thoughts of suicide and prefers to go home and just follow with regular doctor. Dictation of this chart was performed using voice recognition software; therefore, there may be some unintended grammatical errors. 08/27/18 04:56 08/27/18 06:01 - Vital Signs Vital signs: Temp Pulse Resp BP Pulse Ox 98.6 F 98 18 109/65 98 08/27/18 05:25 08/27/18 05:25 08/27/18 05:25 08/27/18 05:25 08/27/18 05:25 Discharge - Discharge Clinical Impression: Opiate overdose Qualifiers: Encounter type: initial encounter Injury intent: accidental or unintentional Qualified Code(s): T40.601A - Poisoning by unspecified narcotics, accidental (unintentional), initial encounter Condition: Good Disposition: HOME, SELF-CARE Additional Instructions: Please never take any form of opiate medicaiton again. Use of opiate medications can potentially lead to . please return to the ER at any time for reevaluation if you have diffiuclty breathing, excessive sleepiness, worsening depression, or feel that you are worsening in any way. I have prescribed you Narcan. People will still potentially overdose or take too much of an opiate medication. Please keep the Narcan with you so as if you do overdose again you have a medication that can reverse the overdose so that you do not stop breathing. If you have to use the Narcan you should return to the ER immediately. Prescriptions: Naloxone HCl [Narcan] 4 mg NS SKYLER #1 spray
[2018-08-27 05:26] VITALS: BP 109/65
== END 2018-08-27 05:25 | disposition home or self-care (01) ==
LOC: ER 03:04
DX: T40.601A Poisoning by unspecified narcotics, accidental (unintentional), initial encounter (principal); X58.XXXA Exposure to other specified factors, initial encounter; F17.200 Nicotine dependence, unspecified, uncomplicated
CPT/HCPCS: 99283

== ENCOUNTER 2019-02-14 12:52 | Emergency (ER) | payer MEDICAID ==
[2019-02-14 13:02] VITALS: BP 88/60
[2019-02-14] MEDS ORDERED: LIDOCAINE 2% VISCOUS SOLN 20 ML UDCUP PO ONE (13:31)
--- NOTE | 2019-02-14 13:35 | ER Document Report ---
HPI - HPI Time Seen by Provider: 02/14/19 13:26 Pain Level: 2 Notes: Patient is a 33-year-old female with no significant past medical history aside from poor dentition who presents complaining of left lower dental pain to #18 area that is been intermittent for the past couple years, the patient recently got Medicaid and also needs a list of dentists so she can schedule an appointment. She is able to eat and drink without difficulty. She is urinating normally and having normal bowel movements. Denies drug allergies. No other concerns or complaints. Denies any headache, fever, head injury, neck pain, drooling, hoarseness, URI, sore throat, chest pain, palpitations, syncope, cough, shortness of breath, wheeze, dyspnea, abdominal pain, nausea/vomiting/diarrhea, urinary retention, dysuria, hematuria, or rash. - ROS Systems Reviewed and Negative: Yes All other systems reviewed and negative - REPRODUCTIVE Reproductive: DENIES: : Past Medical History - Social History Smoking Status: Unknown if Ever Smoked Family History: Reviewed & Not Pertinent Renal/ Medical History: Denies: Hx Peritoneal Dialysis Psychiatric Medical History: Reports: Hx Depression Past Surgical History: Reports: Hx Breast Surgery - Breast mass removed, Hx Oral Surgery - Dental surgery - Immunizations Hx Diphtheria, Pertussis, Tetanus Vaccination: Yes Vertical Provider Document - CONSTITUTIONAL Agree With Documented VS: Yes Notes: PHYSICAL EXAMINATION: GENERAL: Well-appearing, well-nourished and in no acute distress. HEAD: Atraumatic, normocephalic. EYES: Pupils equal round and reactive to light, extraocular movements intact, sclera anicteric, conjunctiva are normal. ENT: Nares patent and without discharge. oropharynx clear without exudates. No tonsilar hypertrophy or erythema. Moist mucous membranes. Uvula midline. No palatine shift. No tongue protrusion. No respiratory compromise. Mouth: Poor dentition. + Severe decay and mild gingivitis. No obvious abscess or discharge noted. No facial swelling. + tenderness to tooth #18. NECK: Normal range of motion, supple without lymphadenopathy. No rigidity/meningismus. LUNGS: Breath sounds clear to auscultation bilaterally and equal. No wheezes rales or rhonchi. HEART: Regular rate and rhythm without murmurs, rubs, gallops. NEUROLOGICAL: Cranial nerves grossly intact. Normal speech, normal gait. PSYCH: Normal mood, normal affect. SKIN: Warm, Dry, normal turgor, no rashes or lesions noted. - INFECTION CONTROL TRAVEL OUTSIDE OF THE [place] IN LAST 30 DAYS: No Course - Re-evaluation Re-evalutation: 02/14/19 13:33 Patient is an afebrile, well-hydrated, 33-year-old female who presents to the ED with dental pain, suspect nerve root etiology versus infection. Vitals are acceptable. PE is otherwise unremarkable. No I&D, labs, or imaging warranted at this time based on H&P. Viscous lidocaine dispensed today. I will send her home with a prescription for penicillin. Low suspicion for any meningitis, sepsis, peritonsillar/pharyngeal abscess, respiratory compromise, Dl's, temporal arteritis, or other emergent systemic condition at this time. Patient is aware this condition can change from initial presentation and she needs to monitor symptoms closely. Conservative measures otherwise for symptoms. Call to schedule an appointment with a dentist for further evaluation and management. Recheck with your PCM this week as well. Return to the ED with any worsening/concerning symptoms otherwise as reviewed in discharge. Patient is in agreement. - Vital Signs Vital signs: Temp Pulse Resp BP Pulse Ox 97.5 F 97 18 88/60 L 97 02/14/19 12:59 02/14/19 12:59 02/14/19 12:59 02/14/19 12:59 02/14/19 12:59 Discharge - Discharge Clinical Impression: Pain, dental Condition: Stable Disposition: HOME, SELF-CARE Instructions: Toothache ([facility]), Penicillin V K ([facility]), Dentist Additional Instructions: [place] and floss twice daily Maintain fluid intake Take antibiotics as directed Mouthwash, salt water gargles, peroxide rinse as needed Tylenol/ibuprofen as needed Recheck with PCM this week Call today/tomorrow and schedule an appointment with your dentist for further evaluation Return to the ED with any worsening symptoms and/or development of fever, headache, facial swelling, swelling of lips/tongue/throat, trouble swallowing, drooling, hoarseness, neck pain/stiffness, chest pain, palpitations, syncope, shortness of breath, trouble breathing, abdominal pain, n/v/d, numbness/tingling, or other worsening symptoms that are concerning to you. Prescriptions: Penicillin V Potassium [Penicillin Vk 250 mg Tablet] 500 mg PO BID #40 tablet Referrals: INES MEDINA DO [Primary Care Provider] - Follow up as needed [facility] [Provider Group] - Follow up as needed
== END 2019-02-14 13:40 | disposition home or self-care (01) ==
LOC: ER 12:52
DX: K02.9 Dental caries, unspecified (principal); K05.10 Chronic gingivitis, plaque induced; K08.89 Other specified disorders of teeth and supporting structures
CPT/HCPCS: 99282; J3490